=== PATIENT | female | born 1970 | race African-American/Black ===

== ENCOUNTER 2023-04-17 13:29 | Inpatient (IN) | payer MEDICAID ==
[~2023-04-17] VITALS: Ht 157.5 cm; Wt 77.1 kg
[2023-04-17 13:38] VITALS: BP_SYST 126; PULSE 104; RESP 22; TEMP 98.3; O2SAT 99
[2023-04-17] MEDS ORDERED: NACL 0.9% 1,000 ML IV ONE (14:15)
[2023-04-17 15:48] LABS: INFLUENZA TYPE A Negative (NEGATIVE); INFLUENZA TYPE B NEGATIVE (NEGATIVE)
[2023-04-17 16:16] LABS: BILIRUBIN,URINE NEGATIVE (NEGATIVE); BLOOD, URINE NEGATIVE (NEGATIVE); CLARITY/URINE CLEAR (CLEAR); COLOR,URINE YELLOW (YELLOW); GLUCOSE,URINE NEGATIVE (NEGATIVE); KETONES,URINE TRACE (NEGATIVE); LEUKOCYTE ESTERASE ,URINE NEGATIVE (NEGATIVE); NITRITE, URINE NEGATIVE (NEGATIVE); PH,URINE 6.5 (5.0-8.0); PROTEIN URINE NEGATIVE (NEGATIVE); UROBILINOGEN,URINE 0.2 (0.2-1.0)
[2023-04-17] MEDS ORDERED: iohexoL 350 mgI/mL, 100 ML INFUS..BTL IV ONE (17:39)
[2023-04-17 19:48] LABS: BASOPHILS % (AUTO) 0.7 % (0.0-2.0); EOSINOPHILS # (AUTO) 0.1 K/uL (0.0-0.4); EOSINOPHILS % (AUTO) 2.3 % (0.0-4.0); HEMATOCRIT 33.8 % (36-48); HEMOGLOBIN 11.2 g/dL (12.0-16.0); LYMPHOCYTES # (AUTO) 2.9 K/uL (1.0-5.5); LYMPHOCYTES % (AUTO) 46.1 % (20.5-51.5); MEAN CORPUSCULAR HEMOGLOBIN 33 pg (27-31); MEAN CORPUSCULAR HGB CONC 33 % (32-36); MEAN CORPUSCULAR VOLUME 99 fL (79.0-98.0); MONOCYTES # (AUTO) 0.5 K/uL (0.0-1.0); MONOCYTES % (AUTO) 7.7 % (1.7-9.3); NEUTROPHILS # (AUTO) 2.7 K/uL (1.8-7.7); NEUTROPHILS % (AUTO) 43.2 % (40.0-70.0); PLATELET COUNT (AUTO) 343 K/uL (130-430); RED CELL DISTRIBUTION WIDTH 14.1 % (9.0-15.0); WHITE BLOOD COUNT (AUTO) 6.3 K/uL (4.8-10.8)
[2023-04-17 19:59] LABS: ANION GAP 9 (5-15); CALCIUM 9.1 mg/dL (8.4-11.0); CARBON DIOXIDE 26 mmol/L (23-29); CHLORIDE 103 mmol/L (98-107); GFR AFRICAN AMERICAN 96 mL/min (>90); GLUCOSE 94 mg/dL (74-106); POTASSIUM 3.7 mmol/L (3.5-5.1); SODIUM SERUM 138 mmol/L (136-145); UREA NITROGEN, BLOOD 15 mg/dL (8-21)
[2023-04-17 20:02] LABS: GFR NON AFRICAN-AMERICAN 79 mL/min (>90)
[2023-04-17 20:12] LABS: ALANINE AMINOTRANSFERASE 15 U/L (12-78); ALBUMIN 2.9 g/dL (3.4-4.8); ASPARTATE AMINOTRANSFERASE 9 U/L (10-37); PHOSPHORUS 3.8 mg/dL (2.7-4.5); THYROID STIMULATING HORMONE 1.07 uIu/mL (0.34-4.82); TOTAL BILIRUBIN 0.1 mg/dL (0.0-1.0); TOTAL PROTEIN, SERUM 6.3 g/dL (6.4-8.3)
[2023-04-17 20:21] LABS: BILIRUBIN,DIRECT 0.1 mg/dL (0.0-0.3)
[2023-04-17] MEDS ORDERED: KETOROLAC TROMETHAMINE 15 MG VIAL IVP ONE (21:30)
[2023-04-17] MEDS ORDERED: ONDANSETRON 4 MG ODT TAB ONE (23:10)
[2023-04-17] MEDS ORDERED: ONDANSETRON 4 MG ODT TAB PO ONE (23:30)
[2023-04-18] MEDS ORDERED: MORPHINE 4 MG INJ. 4 MG/ML VIAL IVP ONE ×2 (00:15→04:30)
[2023-04-18] MEDS ORDERED: *HEPARIN PER PHARMACY XX PRN (02:45)
[2023-04-18] MEDS ORDERED: HEPARIN SODIUM,PORCINE 3000 UNITS/0.6 ML BOLUS IVP PRN (04:45)
[2023-04-18] MEDS ORDERED: HEPARIN SODIUM,PORCINE 2000 UNITS/0.4 ML BOLUS IVP PRN (04:45)
[2023-04-18 05:16] LABS: INR 0.9 (0.8-1.2); PROTHROMBIN TIME 9.7 SECS (9.5-12.5)
[2023-04-18] MEDS ORDERED: HEPARIN SODIUM,PORCINE 10,000 UNIT/ML VIAL IV SCH (05:45)
[2023-04-18] MEDS ORDERED: ALBU90AE2 INH (06:40)
[2023-04-18] MEDS ORDERED: NICO-737 TP (06:40)
[2023-04-18] MEDS ORDERED: NALO12.52 PO (06:40)
[2023-04-18] MEDS ORDERED: HYDR-3927 (06:40)
[2023-04-18] MEDS ORDERED: TRAZ-250 PO (06:40)
[2023-04-18] MEDS ORDERED: FLUT1BLS11 PO (06:40)
[2023-04-18] MEDS ORDERED: FOLI-43 PO (06:40)
[2023-04-18] MEDS ORDERED: DOCU-156 PO (06:40)
[2023-04-18] MEDS ORDERED: HEPARIN SODIUM,PORCINE 5,000 UNITS/ML VIAL IV SCH (06:45)
[2023-04-18] MEDS ORDERED: MORPHINE 2 MG/ML INJ. SYRINGE IVP PRN (07:15)
[2023-04-18] MEDS ORDERED: NALOXONE HCL 0.4 MG/ML AMP (NARCAN) IVP PRN ×2 (07:15)
[2023-04-18] MEDS ORDERED: LORazepam 2 MG/ML VIAL IVP PRN (07:15)
[2023-04-18] MEDS ORDERED: MAGNESIUM SULFATE 50 ML IV PRN (07:15)
[2023-04-18] MEDS ORDERED: IPRATROPIUM/ALBUTEROL SULFATE 3 ML AMPUL.NEB (DUONEB) INH PRN (07:15)
[2023-04-18] MEDS ORDERED: ONDANSETRON HCL 4 MG/2 ML VIAL IVP PRN (07:15)
[2023-04-18] MEDS ORDERED: ZOLPIDEM TARTRATE 5 MG TABLET PO PRN (07:15)
[2023-04-18] MEDS ORDERED: ACETAMINOPHEN 325 MG TABLET PO PRN (07:15)
[2023-04-18] MEDS ORDERED: MUPIROCIN 2% TOPICAL OINTMENT 22 GM NS PRN (07:15)
[2023-04-18] MEDS ORDERED: POTASSIUM CHLORIDE 20 MEQ TABLET.ER PO PRN (07:15)
[2023-04-18] MEDS ORDERED: DOCUSATE SODIUM 100 MG CAPSULE PO PRN (07:15)
[2023-04-18] MEDS ORDERED: ACETAMINOPHEN 500 MG TABLET PO PRN ×2 (07:45)
[2023-04-18] MEDS: HEPARIN 25,000 UNITS in 250 ML PREMIX IV PRN ×2 (09:00→19:26)
[2023-04-18] MEDS: DOCUSATE SODIUM 100 MG CAPSULE PO SCH ×2 (09:00→20:24)
[2023-04-18] MEDS ORDERED: NALOXEGOL OXALATE PO SCH (09:00)
[2023-04-18] MEDS: NACL 0.9% 1,000 ML IV SCH ×3 (09:08→20:26)
[2023-04-18] MEDS: MORPHINE 2 MG/ML INJ. SYRINGE IVP PRN ×2 (09:52→11:31)
[2023-04-18] MEDS: POLYETHYLENE GLYCOL 3350, 17 GM/ POWD.PACK PO SCH (10:44)
[2023-04-18] MEDS: NICOTINE 21 MG/24 HR PATCH.TD24 TD SCH (10:45)
[2023-04-18 10:46] VITALS: BP_SYST 96; PULSE 74; O2SAT 98
[2023-04-18] MEDS: FOLIC ACID 1 MG TABLET PO SCH (10:46)
[2023-04-18 11:35] VITALS: O2SAT 95
[2023-04-18 11:36] VITALS: BP_SYST 142; PULSE 78; RESP 19; TEMP 97.5; O2SAT 100
[2023-04-18] MEDS: MORPHINE 4 MG INJ. 4 MG/ML VIAL IVP PRN ×2 (14:40→20:24)
[2023-04-18 15:00] VITALS: BP_SYST 111; PULSE 90; RESP 18; TEMP 97.7; O2SAT 98
[2023-04-18 20:00] VITALS: BP_SYST 108; PULSE 89; RESP 18; TEMP 97.2; O2SAT 99
[2023-04-18] MEDS ORDERED: traZODone HCL 50 MG TABLET (DESYREL) PO SCH (21:00)
[2023-04-19] MEDS: HEPARIN 25,000 UNITS in 250 ML PREMIX IV PRN ×2 (00:14→01:45)
[2023-04-19 00:31] VITALS: BP_SYST 110; PULSE 75; RESP 18; TEMP 97.6; O2SAT 100
[2023-04-19 01:25] LABS: CANNABINOID, URINE POSITIVE (NEG <=50); OPIATE, URINE POSITIVE (NEG <=100)
[2023-04-19 01:26] LABS: BARBITURATE, URINE NEGATIVE (NEG <=200); BENZODIAZEPINE, URINE NEGATIVE (NEG <=150); COCAINE, URINE NEGATIVE (NEG <=150); METHAMPHETAMINES SCREEN,URINE NEGATIVE (NEG <=500); PHENCYCLIDINE SCREEN,URINE NEGATIVE (NEG <=25); UR TRICYCLIC ANTIDEPRESSANTS NEGATIVE (NEG <=300); URINE AMPHETAMINE NEGATIVE (NEG <=500); URINE METHADONE NEGATIVE (NEG <=200); URINE OXYCODONE SCREEN NEGATIVE (NEG <=100)
[2023-04-19] MEDS: MORPHINE 4 MG INJ. 4 MG/ML VIAL IVP PRN (05:17)
[2023-04-19 06:36] LABS: BASOPHILS % (AUTO) 0.8 % (0.0-2.0); EOSINOPHILS # (AUTO) 0.1 K/uL (0.0-0.4); EOSINOPHILS % (AUTO) 2.3 % (0.0-4.0); HEMATOCRIT 31.4 % (36-48); HEMOGLOBIN 10.3 g/dL (12.0-16.0); LYMPHOCYTES # (AUTO) 2.3 K/uL (1.0-5.5); LYMPHOCYTES % (AUTO) 41.8 % (20.5-51.5); MEAN CORPUSCULAR HEMOGLOBIN 33 pg (27-31); MEAN CORPUSCULAR HGB CONC 33 % (32-36); MONOCYTES # (AUTO) 0.4 K/uL (0.0-1.0); NEUTROPHILS # (AUTO) 2.6 K/uL (1.8-7.7); NEUTROPHILS % (AUTO) 47.1 % (40.0-70.0); PLATELET COUNT (AUTO) 313 K/uL (130-430); RED BLOOD CELL COUNT(AUTO) 3.13 MIL/uL (4.2-6.2); RED CELL DISTRIBUTION WIDTH 14.3 % (9.0-15.0); WHITE BLOOD COUNT (AUTO) 5.4 K/uL (4.8-10.8)
[2023-04-19 07:13] LABS: CALCIUM 8.8 mg/dL (8.4-11.0); CREATININE 0.66 mg/dL (0.55-1.30); POTASSIUM 4.1 mmol/L (3.5-5.1)
[2023-04-19 08:00] VITALS: BP_SYST 116; PULSE 77; RESP 18; TEMP 97.1; O2SAT 98
[2023-04-19] MEDS ORDERED: APIX5TAB PO (08:28)
[2023-04-19] MEDS: FOLIC ACID 1 MG TABLET PO SCH (09:00)
[2023-04-19] MEDS: POLYETHYLENE GLYCOL 3350, 17 GM/ POWD.PACK PO SCH (09:00)
[2023-04-19] MEDS: DOCUSATE SODIUM 100 MG CAPSULE PO SCH (09:00)
[2023-04-19] MEDS ORDERED: MOVANTIK 12.5 MG PO SCH (09:00)
[2023-04-19] MEDS ORDERED: APIXABAN 2.5 MG TABLET PO SCH (09:00)
[2023-04-19 09:22] LABS: MEAN CORPUSCULAR VOLUME 101 fL (79.0-98.0)
[2023-04-19] MEDS: NICOTINE 21 MG/24 HR PATCH.TD24 TD SCH (09:52)
[2023-04-19 10:15] VITALS: BP_SYST 116; PULSE 77; RESP 16; TEMP 97.1; O2SAT 98
== END 2023-04-19 10:40 | disposition home or self-care (01) | DRG 134 ==
LOC: SED 13:29 → STU 04-18 02:38
PROVIDERS: ADMIT General Practice; ATTEND General Practice
DX: I26.99 Other pulmonary embolism without acute cor pulmonale (principal); C79.9 Secondary malignant neoplasm of unspecified site; E44.0 Moderate protein-calorie malnutrition; R65.10 Systemic inflammatory response syndrome (SIRS) of non-infectious origin without acute organ dysfunction; C50.911 Malignant neoplasm of unspecified site of right female breast; E78.5 Hyperlipidemia, unspecified; D64.9 Anemia, unspecified; F17.200 Nicotine dependence, unspecified, uncomplicated; I10 Essential (primary) hypertension; G89.4 Chronic pain syndrome; J44.9 Chronic obstructive pulmonary disease, unspecified; R26.89 Other abnormalities of gait and mobility; Z20.822 Contact with and (suspected) exposure to COVID-19; M79.7 Fibromyalgia; Z92.3 Personal history of irradiation; Z90.11 Acquired absence of right breast and nipple; Z86.711 Personal history of pulmonary embolism; Z85.3 Personal history of malignant neoplasm of breast; Z80.3 Family history of malignant neoplasm of breast; Z80.0 Family history of malignant neoplasm of digestive organs; Z79.891 Long term (current) use of opiate analgesic; Z79.01 Long term (current) use of anticoagulants; Z63.4 Disappearance and death of family member; Z68.31 Body mass index [BMI] 31.0-31.9, adult
CPT/HCPCS: 36415; 71045; 71275; 76376; 80048; 80076; 80307; 81001; 81003; 83037; 83605; 83735; 83880; 84100; 84443; 84484; 85025; 85379; 85610-TC; 85730-TC; 87040; 93005; 96374; 96375; 96376; 99285; G0378; J1644; J1885; J2270; J2405; Q0162; Q9967

== ENCOUNTER 2024-02-20 13:43 | Emergency (ER) | payer OTHER, MEDICAID ==
[~2024-02-20] VITALS: Ht 157.5 cm; Wt 81.6 kg
[~2024-02-20 13:43] MED LIST: ALBU90AE3 INH; APIX5TAB PO; DOCU-156 PO; FLUT1BLS11 PO; FOLI-43 PO; HYDR-3927; NALO12.52 PO; NICO-737 TP; TRAZ-250 PO
[2024-02-20 13:57] VITALS: BP_SYST 111; PULSE 96; RESP 16; TEMP 98.1; O2SAT 100
[2024-02-20] MEDS: HYDROcodone/ACETAMIN 10-325 MG TAB PO ONE (15:03)
[2024-02-20] MEDS: KETOROLAC TROMETHAMINE 60 MG/2 ML VIAL IM ONE (15:04)
[2024-02-20] MEDS: MORPHINE 4 MG INJ. 4 MG/ML VIAL IM ONE (16:44)
[2024-02-20 16:48] VITALS: BP_SYST 111; PULSE 96; RESP 16; TEMP 98.1; O2SAT 100
== END 2024-02-20 16:45 | disposition home or self-care (01) ==
LOC: SED 13:43
DX: S16.1XXA Strain of muscle, fascia and tendon at neck level, initial encounter (principal); R10.2 Pelvic and perineal pain; M25.552 Pain in left hip; M25.551 Pain in right hip; J45.909 Unspecified asthma, uncomplicated; E11.9 Type 2 diabetes mellitus without complications; I10 Essential (primary) hypertension; E78.5 Hyperlipidemia, unspecified; M79.7 Fibromyalgia; Z86.711 Personal history of pulmonary embolism; Z85.3 Personal history of malignant neoplasm of breast; Z79.899 Other long term (current) drug therapy; Z79.51 Long term (current) use of inhaled steroids; Z79.01 Long term (current) use of anticoagulants; V89.2XXA Person injured in unspecified motor-vehicle accident, traffic, initial encounter; Y93.89 Activity, other specified; Y92.89 Other specified places as the place of occurrence of the external cause; Y99.8 Other external cause status
CPT/HCPCS: 99285; 72125; 71045; 72170; 96372; J1885; J2270